=== PATIENT | female | born 1980 | race Caucasian/White ===

== ENCOUNTER 2022-03-25 07:41 | Emergency (ER) | payer MEDICAID, OTHER ==
[~2022-03-25] VITALS: Ht 157.5 cm; Wt 75.0 kg
[~2022-03-25 07:41] MED LIST: ETHI1TAB26 PO
[2022-03-25 08:04] VITALS: BP 129/79
== END 2022-03-25 13:54 | disposition left against medical advice (07) ==
LOC: ER 07:42
DX: R21 Rash and other nonspecific skin eruption (principal); Z53.21 Procedure and treatment not carried out due to patient leaving prior to being seen by health care provider